=== PATIENT | male | born 1990 | race African-American/Black ===

== ENCOUNTER 2016-12-06 16:27 | Emergency (ER) | payer SELFPAY ==
[2016-12-06 16:33] VITALS: BP 133/84; PULSE 60; TEMP 97.9; BMI 19.9
--- NOTE | 2016-12-06 16:34 | PDOC ---
History of Present Illness - History of Present Illness Initial Comments: 12/06/16 17:03 The patient is a 26 year old male, with no significant past medical history, who presents to the emergency department requesting STD testing today. The patient reports being informed that a sexual partner was diagnosed with chlamydia and reports being advised to come in for STD testing. He reports stinging on urination and slight penile discharge "recently" and also reports noticing some "crusting" at the urethra. He reports the discharge is milky in color. He reports his last sexual interaction with the affected partner was 2 months ago. He reports having one other partner after having sexual interaction with the affected partner and admits to informing his most recent partner. He denies any new musculoskeletal pain. He denies having STDs in the past, and reports having STD testing last year which were negative. He denies chest pain, shortness of breath, headache and dizziness. He denies fever, chills, nausea, vomit, diarrhea and constipation. He denies dysuria, frequency, urgency and hematuria. Allergies: penicillins Past surgical history: none reported Social history: Pt reports occasional alcohol consumption. Denies illicit drug use. Works as a truck loader. Family History: hypertension, diabetes, schizophrenia, MS, alzheimers <Lois Allen - Last Filed: 12/06/16 17:18> <Victorino Hernandez - Last Filed: 12/10/16 08:45> - General Chief Complaint: Penile Drainage Stated Complaint: questionable std Time Seen by Provider: 12/06/16 16:30 Past History <Lois Allen - Last Filed: 12/06/16 17:18> - Psycho/Social/Smoking Cessation Hx Anxiety: No Suicidal Ideation: No Smoking History: Never smoked Have you smoked in the past 12 months: No Hx Alcohol Use: (OCC) Substance Use Type: None <Victorino Hernandez - Last Filed: 12/10/16 08:45> - Past Medical History Allergies/Adverse Reactions: Allergies Allergy/AdvReac Type Severity Reaction Status Date / Time Penicillins Allergy Verified 12/06/16 16:29 Home Medications: Ambulatory Orders NK [No Known Home Medication] 08/27/14 Review of Systems - Review of Systems Able to Perform ROS?: Yes Comments:: 12/06/16 17:03 CONSTITUTIONAL: Absent: fever, chills, diaphoresis, generalized weakness, malaise, loss of appetite HEENT: Absent: rhinorrhea, nasal congestion, throat pain, throat swelling, difficulty swallowing, mouth swelling, ear pain, eye pain, visual Changes CARDIOVASCULAR: Absent: chest pain, syncope, palpitations, irregular heart rate, lightheadedness , peripheral edema RESPIRATORY: Absent: cough, shortness of breath, dyspnea with exertion, orthopnea, wheezing, stridor, hemoptysis GASTROINTESTINAL: Absent: abdominal pain, abdominal distension, nausea, vomiting, diarrhea, constipation, melena, hematochezia GENITOURINARY: (+) dysuria and white penile discharge. Absent: frequency, urgency, hesitancy, hematuria, flank pain, genital pain MUSCULOSKELETAL: Absent: myalgia, arthralgia, joint swelling SKIN: Absent: rash, itching, pallor HEMATOLOGIC/IMMUNOLOGIC: Absent: easy bleeding, easy bruising, lymphadenopathy, frequent infections ENDOCRINE: Absent: unexplained weight gain, unexplained weight loss, heat intolerance, cold intolerance NEUROLOGIC: Absent: headache, focal weakness or paresthesia, dizziness, unsteady gait, seizure, mental status changes, bladder or bowel incontinence PSYCHIATRIC: Absent: anxiety, depression, suicidal or homicidal ideation, hallucinations <Lois Allen - Last Filed: 12/06/16 17:18> *Physical Exam - Vital Signs Last Vital Signs Temp Pulse Resp BP Pulse Ox 97.9 F 60 20 133/84 98 12/06/16 16:28 12/06/16 16:28 12/06/16 16:28 12/06/16 16:28 12/06/16 16:28 - Physical Exam Comments: 12/06/16 17:05 GENERAL: Well developed, well nourished. Awake and alert. No acute distress. HEENT: Normocephalic, atraumatic. PERRLA, EOMI. No conjunctival pallor. Sclera are non- icteric. Moist mucous membranes. Oropharynx is clear. NECK: Supple. Full ROM. No JVD. Carotid pulses 2+ and symmetric, without bruits. No thyromegaly. No lymphadenopathy. CARDIOVASCULAR: Regular rate and rhythm. No murmurs, rubs, or gallops. Distal pulses are 2+ and symmetric. PULMONARY: No evidence of respiratory distress. Lungs clear to auscultation bilaterally. No wheezing, rales or rhonchi. ABDOMINAL: Soft. Non-tender. Non-distended. No rebound or guarding. No organomegaly. Normoactive bowel sounds. MUSCULOSKELETAL Normal range of motion at all joints. No bony deformities or tenderness. No CVA tenderness. EXTREMITIES: No cyanosis. No clubbing. No edema. No calf tenderness. SKIN: Warm and dry. Normal capillary refill. No rashes. No jaundice. GENITALIA: (+) no erythema or edema. No discharge present at this time. No lesions or rash. NEUROLOGICAL: Alert, awake, appropriate. Cranial nerves 2-12 intact. No motor deficits in the upper extremities and lower extremities. Normoreflexic in the upper and lower extremities. Normal speech. Gait is normal without ataxia. PSYCHIATRIC: Cooperative. Good eye contact. Appropriate mood and affect. <Lois Allen - Last Filed: 12/06/16 17:18> Medical Decision Making - Medical Decision Making 12/06/16 17:42 Patient reportedly had a positive chlamydia culture was symptoms of urethral discharge. Repeat cultures were performed. In addition, HIV testing and syphilis serology were performed. The patient has a possible penicillin ALLERGY which he is unable to describe, saying that he had some sort of reaction that was not serious as a child but was told by his mother and never to take penicillin again. He has not taken oral antibiotics since then. Treatment was administered with ceftriaxone and azithromycin according to CDC guidelines. Patient was observed and there was no reaction to the medication. He was discharged to follow-up with urologist 12/10/16 08:45 <Victorino Hernandez - Last Filed: 12/10/16 08:45> *DC/Admit/Observation/Transfer - Attestations Scribe Attestion: 12/06/16 17:08 Documentation prepared by Lois Allen, acting as medical chemist for Victorino Reyna MD <Lois Allen - Last Filed: 12/06/16 17:18> - Discharge Dispostion Admit: No <Victorino Hernandez - Last Filed: 12/10/16 08:45> Diagnosis at time of Disposition: Urethritis, nongonococcal, sexually transmitted - Discharge Dispostion Disposition: HOME Condition at time of disposition: Improved - Referrals Referrals: Zaid Briones MD., MD [Staff Physician] - 1 week - Patient Instructions Printed Discharge Instructions: Facts About Sexually Transmitted Infections Additional Instructions: Refrain from sex for at least 1 week after symptoms resolve. Inform all sexual partners that they should be examined and treated. Follow-up with urologist as directed.
--- NOTE | 2016-12-06 17:02 | PDOC ---
History of Present Illness - General Chief Complaint: Penile Drainage Stated Complaint: questionable std Time Seen by Provider: 12/06/16 16:30 History Source: Patient Exam Limitations: No Limitations - History of Present Illness Initial Comments: 12/06/16 17:39 Patient is a 26 year old male with no significant medical history presenting in ED after being informed by the department of health that a previous sexual contact had been reported for a chlamydial infection. Patient admitted unprotected sexual contact x1 two and a half months ago with one other unprotected contact since that time. Patient stated he has informed other sexual partners and they are seeking treatment. Past History - Past Medical History Allergies/Adverse Reactions: Allergies Allergy/AdvReac Type Severity Reaction Status Date / Time Penicillins Allergy Verified 12/06/16 16:29 Home Medications: Ambulatory Orders NK [No Known Home Medication] 08/27/14 Other medical history: denies - Immunization History Immunization Up to Date: Yes - Psycho/Social/Smoking Cessation Hx Anxiety: No Suicidal Ideation: No Smoking History: Never smoked Have you smoked in the past 12 months: No Information on smoking cessation initiated: No Hx Alcohol Use: (OCC) Drug/Substance Use Hx: No Substance Use Type: None *Physical Exam - Vital Signs Last Vital Signs Temp Pulse Resp BP Pulse Ox 97.9 F 60 20 133/84 98 12/06/16 16:28 12/06/16 16:28 12/06/16 16:28 12/06/16 16:28 12/06/16 16:28 Medical Decision Making - Medical Decision Making 12/06/16 17:49 Patient said he was told of a penicillin allergy from his mother and has no knowledge of ever having an allergic reaction. Patient states that he has never has any reaction to medication or food including breathing problems or rash. This lowers the suspicion of there being an adverse reaction with a cephalasporin. The risks and benefits of treating patient with recephin were discussed with the patient and he indicated that he was confortable with receiving this antibiotic. *DC/Admit/Observation/Transfer Diagnosis at time of Disposition: Urethritis, nongonococcal, sexually transmitted - Discharge Dispostion Disposition: HOME Condition at time of disposition: Improved - Referrals Referrals: Zaid Briones MD., MD [Staff Physician] - 1 week - Patient Instructions Printed Discharge Instructions: Facts About Sexually Transmitted Infections Additional Instructions: Refrain from sex for at least 1 week after symptoms resolve. Inform all sexual partners that they should be examined and treated. Follow-up with urologist as directed. - Attestations Physician Attestion: 12/06/16 19:34 I, Dr. Daniel Goel, attest that this document has been prepared under my direction and personally reviewed by me in its entirety. I further attest, that it accurately reflects all work, treatment, procedures and medical decision -making performed by me.
[2016-12-06] MEDS ORDERED: AZITHROMYCIN 1 GM PACKET PO ONE (17:27)
[2016-12-06] MEDS ORDERED: AZITHROMYCIN 1 GM PACKET ONE (17:31)
[2016-12-06 21:09] LABS: HIV 1 & 2 AB NEGATIVE; HIV 1 AGp24 NEGATIVE
== END 2016-12-06 18:02 | disposition home or self-care (01) ==
LOC: FER 16:27
DX: N34.1 Nonspecific urethritis (principal)
CPT/HCPCS: 36415; 86593; 87389; 87491; 87591; 99281-25